=== PATIENT | male | born 1960 | race Caucasian/White ===

== ENCOUNTER 2017-10-27 13:21 | Emergency (ER) | payer BC ==
--- NOTE | 2017-10-27 14:56 | UC ---
Skin Complaint HPI - HPI Summary HPI Summary: patient is a 57-year-old male presenting to the with tick attached to the right groin. He states the tick has been attached for less than 24 hours as he was outside yesterday. Endorses a small amount of pain to the area. There is no erythema around the tick head. Denies history of Lyme. Has had tick bites in the past and has never been on doxycycline. Denies any fevers, sweats, chills, neck pain, headache. - History of Current Complaint Chief Complaint: UCSkin Time Seen by Provider: 10/27/17 13:37 Stated Complaint: TICK BITE Hx Obtained From: Patient Onset/Duration: Sudden Onset Skin Exposure Onset/Duration: Hours Ago Timing: Constant Onset Severity: Mild Current Severity: None Pain Intensity: 0 Pain Scale Used: 0-10 Numeric Character: Redness Aggravating Factor(s): Nothing Alleviating Factor(s): Nothing Associated Signs & Symptoms: Positive: Negative Related History: Possible Reaction to: Insect - Allergy/Home Medications Allergies/Adverse Reactions: Allergies Allergy/AdvReac Type Severity Reaction Status Date / Time No Known Allergies Allergy Verified 10/27/17 13:30 Home Medications: Home Medications NK [No Home Medications Reported] 10/27/17 [History Confirmed 10/27/17] Review of Systems Constitutional: Negative Skin: Other - tick bite with erythema - no EM rash Respiratory: Negative Cardiovascular: Negative Motor: Negative Neurovascular: Negative Musculoskeletal: Negative Psychological: Negative Is Patient Immunocompromised?: No All Other Systems Reviewed And Are Negative: Yes PMH/Surg Hx/FS Hx/Imm Hx Previously Healthy: Yes - Surgical History Surgical History: None - Family History Known Family History: Positive: Unknown - Social History Occupation: Employed Full-time Lives: With Family Alcohol Use: Occasionally Substance Use Type: None Smoking Status (MU): Heavy Every Day Tobacco Smoker Type: Cigarettes Length of Time of Smoking/Using Tobacco: 30 years Physical Exam Triage Information Reviewed: Yes Appearance: Well-Appearing, Well-Nourished Vital Signs: Initial Vital Signs Temp 98.8 F 10/27/17 13:30 Pulse 83 10/27/17 13:30 Resp 20 10/27/17 13:30 BP 134/86 10/27/17 13:30 Pulse Ox 94 10/27/17 13:30 Eye Exam: Normal Eyes: Positive: Conjunctiva Clear Neck exam: Normal Neck: Positive: Supple, No Lymphadenopathy Respiratory Exam: Normal Respiratory: Positive: Chest non-tender, Lungs clear Cardiovascular Exam: Normal Cardiovascular: Positive: RRR Musculoskeletal Exam: Normal Musculoskeletal: Positive: Strength Intact Neurological Exam: Normal Neurological: Positive: Alert Psychological: Positive: Normal Response To Family, Age Appropriate Behavior Skin: Positive: Other - tick bite with erythema - no EM rash Course/Dx - Course Course Of Treatment: Patient arrives with a concern for tick to the right groin. The tick is not engorged. There is no erythema migrans rash. Based on ISDA guidelines, understanding a local rite of infection of ticks with B burgdorferi is 20% if attached for over 48 hours. Attached tick is identified as an adult and scapularis tick or deer tick. However, tick is estimated to up and attached for less than the 48 hours by degree of engorgement in time of exposure. Prophylaxis will not be initiated. Patient is OK with plan and discharge. - Diagnoses Provider Diagnoses: Tick bite Discharge - Sign-Out/Discharge Documenting (check all that apply): Discharge/Admit/Transfer - Discharge Plan Condition: Stable Disposition: HOME Patient Education Materials: Tick Bite (ED) Referrals: Topher Jasso MD [Primary Care Provider] - Additional Instructions: Tick Bite: Approach to prophylaxis : According to the Infectious Diseases Society of [place] (IDSA) guidelines that recommend antibiotic prophylaxis only in patients who meet all of the following criteria: 1. Attached tick identified as an adult or nymphal I. scapularis tick (deer tick). 2. Tick is estimated to have been attached for 48 hours (by degree of engorgement or time of exposure). 3. Prophylaxis is begun within 72 hours of tick removal. Local rate of infection of ticks with B. burgdorferi is 20 percent if attached for over 48 hours (these rates of infection have been shown to occur in parts of [place], parts of the [facility], and parts of [place] and [place]). If you experience a tick and time of attachment is believed to be less than what was hours, you may remove the tick with head intact and no need for prophylaxis. If over 48 hours, please come into UC. Prophylactic doxycycline is not recommended for ticks attached less than 48 hours. - Billing Disposition and Condition Condition: STABLE Disposition: HOME
== END 2017-10-27 13:52 | disposition home or self-care (01) ==
LOC: UCEAST 13:21
DX: S30.861A Insect bite (nonvenomous) of abdominal wall, initial encounter (principal); W57.XXXA Bitten or stung by nonvenomous insect and other nonvenomous arthropods, initial encounter; Y93.9 Activity, unspecified; Y92.9 Unspecified place or not applicable; F17.210 Nicotine dependence, cigarettes, uncomplicated
CPT/HCPCS: 99201; G0463

== ENCOUNTER 2018-09-10 11:19 | Emergency (ER) | payer SELFPAY ==
--- NOTE | 2018-09-10 13:42 | ED ---
Lower Extremity - HPI Summary HPI Summary: Patient is a 57-year-old male smoker presenting to the ED with chief complaint of right hamstring pain radiating down into the right calf. Denies any known injury. Denies recent travel. Patient is a smoker. Patient endorses worsening pain with ambulation, better with rest. He's never had this happen before. No history of blood clots. He states he is otherwise healthy. He states pain started suddenly and has gradually worsened over the past 3 days. - History of Current Complaint Chief Complaint: EDExtremityLower Stated Complaint: RIGHT LEG PAIN PER PT Time Seen by Provider: 09/10/18 11:42 Hx Obtained From: Patient Mechanism Of Injury: Twisted Onset of Pain: Hours Onset/Duration: Days Severity Initially: Moderate Severity Currently: Moderate Pain Intensity: 6 Pain Scale Used: 0-10 Numeric Timing: Constant Location: Is Discrete @ - right hamstring and calf muscle pain Associated Signs And Symptoms: Positive: Negative. Negative: Swelling, Redness , Bruising Aggravating Factor(s): Standing, Ambulation Alleviating Factor(s): Rest Able to Bear Weight: No - Risk Factors Gout Risk Factors: Negative DVT Risk Factors: Smoking Septic Arthritis Risk Factor: Negative - Allergies/Home Medications Allergies/Adverse Reactions: Allergies Allergy/AdvReac Type Severity Reaction Status Date / Time No Known Allergies Allergy Verified 09/10/18 11:36 PMH/Surg Hx/FS Hx/Imm Hx Previously Healthy: Yes Endocrine/Hematology History: Denies: Hx Diabetes, Hx Thyroid Disease Cardiovascular History: Denies: Hx Hypertension Respiratory History: Denies: Hx Asthma, Hx Chronic Obstructive Pulmonary Disease (COPD) GI History: Denies: Hx Ulcer - Immunization History Hx Pertussis Vaccination: No Immunizations Up to Date: Yes Infectious Disease History: No Infectious Disease History: Denies: Hx Hepatitis, Hx Human Immunodeficiency Virus (HIV), Traveled Outside the [place] in Last 30 Days - Family History Known Family History: Positive: Unknown - Social History Occupation: Employed Full-time Lives: With Family Alcohol Use: Occasionally Hx Substance Use: No Substance Use Type: Reports: None Hx Tobacco Use: Yes Smoking Status (MU): Heavy Every Day Tobacco Smoker Type: Cigarettes Length of Time of Smoking/Using Tobacco: 30 years Review of Systems Constitutional: Negative Negative: Fever, Chills, Fatigue, Skin Diaphoresis Negative: Palpitations, Chest Pain Negative: Shortness Of Breath, Cough Genitourinary: Negative Positive: no symptoms reported, see HPI Positive: Myalgia - right hamstring and calf muscle pain Skin: Negative Neurological: Negative All Other Systems Reviewed And Are Negative: Yes Physical Exam Triage Information Reviewed: Yes Vital Signs On Initial Exam: Initial Vitals Temp Pulse Resp BP Pulse Ox 97.6 F 73 18 119/81 93 09/10/18 11:32 09/10/18 11:32 09/10/18 11:32 09/10/18 11:32 09/10/18 11:32 Vital Signs Reviewed: Yes Appearance: Positive: Well-Appearing, Well-Nourished Skin: Positive: Warm, Skin Color Reflects Adequate Perfusion Head/Face: Positive: Normal Head/Face Inspection Eyes: Positive: EOMI, Conjunctiva Clear Neck: Positive: Supple, No Lymphadenopathy Respiratory/Lung Sounds: Positive: Clear to Auscultation, Breath Sounds Present Cardiovascular: Positive: RRR, Pulses are Symmetrical in both Upper and Lower Extremities Musculoskeletal: Positive: Normal, Strength/ROM Intact Neurological: Positive: Speech Normal Psychiatric: Positive: Affect/Mood Appropriate AVPU Assessment: Alert Diagnostics - Vital Signs Vital Signs Temp Pulse Resp BP Pulse Ox 09/10/18 12:58 75 118/88 93 09/10/18 12:57 72 95 09/10/18 11:32 97.6 F 73 18 119/81 93 - Laboratory Lab Statement: Any lab studies that have been ordered have been reviewed, and results considered in the medical decision making process. Lower Extremity Course/Dx - Course Course Of Treatment: During the course of treatment, the patient's evaluated for right hamstring and calf pain, worse with stairs and ambulation, better with rest. He states after a period of time of ambulating, the muscle seems to warmup and feels somewhat better. Symptoms are worse with sitting to standing and beginning movement. DVT ultrasound study obtained which is negative. Patient is able to flex and extend. No evidence of popliteal cysts. No swelling or ecchymosis. Patient denies any pain to the ankle joint. He denies any numbness or tingling to the ipsilateral lower extremity. He will be discharged with muscle tightness and will be given Flexeril twice daily as needed. - Diagnoses Provider Diagnoses: Muscle tightness Discharge - Sign-Out/Discharge Documenting (check all that apply): Patient Departure Patient Received Moderate/Deep Sedation with Procedure: No - Discharge Plan Condition: Stable Disposition: HOME Prescriptions: Cyclobenzaprine TAB* [Flexeril TAB*] 10 mg PO BID PRN #10 tab PRN Reason: Spasms Patient Education Materials: Leg Cramps (ED) Referrals: Aleksandr Sorenson MD [Medical Doctor] - Topher Jasso MD [Primary Care Provider] - Additional Instructions: Please follow up with one of our orthopedic physicians or your physician Moist heat to the area as much as possible Keep good movement in the leg and continue gentle stretches (especially after you use heat) Ibuprofen 600mg three times daily x 4-5 days - Billing Disposition and Condition Condition: STABLE Disposition: Home
[2018-09-10 13:55] VITALS: BP 126/95
== END 2018-09-10 13:52 | disposition home or self-care (01) ==
LOC: ED 11:19
DX: M62.89 Other specified disorders of muscle (principal); M79.651 Pain in right thigh; M79.661 Pain in right lower leg; F17.210 Nicotine dependence, cigarettes, uncomplicated
CPT/HCPCS: 99282

== ENCOUNTER → 2018-11-04 05:40 | Day surgery (SDC) | payer BC ==
--- NOTE | 2018-10-26 08:24 | HP ---
AMENDED REPORT NOW INCLUDES DESIGNATED COSIGNER HISTORY AND PHYSICAL: DATE OF ADMISSION/SURGERY: 11/04/18 DATE OF OFFICE VISIT: 10/25/18 SURGEON: Sabrina Carrington MD.* (DICTATED BY LARA GARCIA) PROCEDURE: Right knee arthroscopy with partial meniscectomy, possible chondroplasty, possible synovectomy, and possible plica excision. CHIEF COMPLAINT: Right knee pain. HISTORY OF PRESENT ILLNESS: Mr. Reyes is a 58-year-old gentleman with continued complaints of right knee pain. He has failed conservative treatment and elected to proceed with a right knee arthroscopy. PAST MEDICAL HISTORY: Denies. PAST SURGICAL HISTORY: ORIF of the left ankle, appendectomy. CURRENT MEDICATIONS: None. ALLERGIES: None. FAMILY HISTORY: Diabetes. SOCIAL HISTORY: He is a 58-year-old gentleman, lives with his , smokes approximately 15 cigarettes a day, drinks 2 beers 4 times a week. Denies use of illicit drugs. REVIEW OF SYSTEMS: A complete 14-point review of systems was reviewed with the patient. It was all negative or noncontributory. He denies a history of DVT, PE, hepatitis, HIV, or anesthesia problems. PHYSICAL EXAMINATION GENERAL: He is well developed, well nourished, in no acute distress. VITAL SIGNS: He stands 5 feet 9 inches tall, weighs 234 pounds. His blood pressure is 138/76, his heart rate is 78. HEENT: Normocephalic, atraumatic. NECK: Supple. No palpable lymph nodes. PULMONARY: The lungs are clear to auscultation bilaterally. CARDIO: Regular rate and rhythm. Strong S1, S2. ABDOMEN: Soft, nontender, nondistended. NEUROLOGICAL: He is alert and oriented x3. MUSCULOSKELETAL: Right lower extremity: The skin is intact. There are no open wounds or abrasions. There is a [id number] effusion of the right knee, some tenderness along the medial joint line. Positive Apley's. Positive Caridad's. Negative Bradley's. Range of motion is 5 to 125 degrees of flexion. He has a 2+ dorsalis pedis pulse. He is able to dorsiflex and plantar flex and has intact sensation. ASSESSMENT AND PLAN: Mr. Reyes is a 58-year-old gentleman with right knee pain secondary to a meniscal tear. He has elected to proceed with a right knee arthroscopy with partial meniscectomy, possible chondroplasty, possible synovectomy, and possible plica excision. The surgery is scheduled for with Dr. Carrington. Dr. Carrington discussed the risks and benefits of the surgery at today's visit and all of his questions were answered. He will follow up with Dr. Carrington in 2 weeks after the surgery. LARA GARCIA [id number]/[facility] #: [id number] MTDVicky
[~2018-11-04 05:40] MED LIST: Buffered Lidocaine 1% SYRIN* 1 ML/SYRINGE INTRADERM ONE; Bupivacaine 0.5%* 50 ML VIAL ONE; Chloroprocaine 2%* 20 ML VIAL ONE; Dexamethasone IV* 4 MG/ML 1 ML (4 MG) IV SLOW PU ONE; Dexamethasone IV* 4 MG/ML 1 ML (4 MG) ONE; DiMENhydriNATE IV* 50 MG/ML VIAL IV PUSH PRN; EPINEPHRINE 1 MG/ML 1 ML VIAL ONE; Famotidine IV* 10 MG/ML 2 ML (20 mg) IV ONE; Famotidine IV* 10 MG/ML 2 ML (20 mg) ONE; Ketorolac INJ* 30 MG/ML 1 ML VIAL ONE; Lactated Ringers 1000 ML Bag* 1,000 ML IV SCH; Midazolam* 1 MG/ML 5 ML VIAL (5 MG) ONE; Naloxone* 0.4 MG/ML 1 ML VIAL IV PRN; Ondansetron INJ* 2 MG/ML VIAL IV PRN; Ondansetron INJ* 2 MG/ML VIAL ONE; Phenylephrine 10 MG/ML VIAL* 1 ML VIAL ONE; Propofol* 10 MG/ML 20 ML BTL ONE; ROPIVACAINE 5 MG/ML 30 ML BTL (0.5%) ONE; ceFAZolin 2 GM PREMIX in ORs 2 GM/50 ML BAG IVPB ONE; fentaNYL* 50 MCG/ML 2 ML VIAL (100 MCG VIAL) IV PRN; fentaNYL* 50 MCG/ML 2 ML VIAL (100 MCG VIAL) ONE; methylPREDNISolone ACETATE 80* 80 MG/ML 1 ML VIAL ONE; oxyCODONE/Acetamin 5/325 MG* TAB PO PRN
[2018-11-04 09:50] VITALS: BP 105/78
--- NOTE | 2018-11-05 00:17 | OP ---
DATE OF OPERATION: 11/04/18 - [facility] DATE OF : 64 ATTENDING SURGEON: Sabrina Carrington MD LOG COOKER: LARA Cardona. Ms. Villavicencio did help throughout the procedure with preparation of the leg, wound retraction, manipulation of the knee, and wound closure. ANESTHESIOLOGIST: Dr. Rocha. ANESTHESIA: Spinal. PRE-OP DIAGNOSIS: Right knee medial meniscal tear, moderate arthritic changes. POST-OP DIAGNOSIS: Right knee medial meniscal tear, anterior synovitis, moderate- to-severe degenerative osteoarthritis. OPERATIVE PROCEDURE: Right knee arthroscopy with partial medial meniscectomy and anterior synovectomy. COMPLICATIONS: None. SPECIMEN: None. ESTIMATED BLOOD LOSS: Less than 25 cc. BRIEF HISTORY/INDICATIONS: Mr. Reyes is a 58-year-old gentleman who developed a sensation of mechanical symptoms along the medial joint line with acute increase in pain over the last 6 months. Conservative treatment failed to relieve his pain. The patient and I obtained an MRI, which did show a medial meniscal tear. The patient noticed that he had baseline arthritic changes as well. Due to failure of conservative treatment and continued pain, the patient wished proceed with right knee arthroscopy and partial meniscectomy. Informed consent was obtained from the patient. He understood the risk of surgery included, but were not limited to bleeding, infection, damage to nearby structures, continued pain, need for further surgery, intraoperative complications, retear of the meniscus, progression of arthritis, stroke, heart attack, blood clot, and . He wished to proceed. INTRAOPERATIVE FINDINGS: Intraoperatively, the patient was noted to have grade 3 and 4 Outerbridge cartilage changes in the medial and patellofemoral compartments. This was severe arthritis with exposed subchondral bone. He had a linear type tear in the posterior third of the medial meniscus in the white- red zone. He had significant anterior synovitis. DESCRIPTION OF PROCEDURE: Mr. Reyes was identified in the preanesthesia unit. His right lower extremity was marked as the correct operative side. Informed consent was signed and placed in the chart. The patient was taken to the operating room and placed under spinal anesthesia. Right lower extremity was prepped and draped in the usual sterile fashion. Preop time-out was made to correctly identify the patient, side, and site. Appropriate perioperative antibiotics were given within 1 hour of incision. A 0.5 cm anterolateral portal incision was made with a 10-blade and carried down to the capsule. Trocar was introduced. As soon as the light and water sources were turned down, there was immediate visualization of the suprapatellar pouch. A tour of the knee joint was performed. Suprapatellar pouch showed no obvious abnormalities. Patellofemoral compartment showed grade 3 and 4 Outerbridge cartilage changes with the exposed subchondral bone along the medial and lateral patellar facets as well as the trochlear group of the femur. Medial gutter showed no plica or loose body. The anterior joint line had extensive synovitis and inflamed tissue. Medial compartment showed exposed subchondral bone along the medial femoral condyle, grade 3 and 4 Outerbridge cartilage changes. There was an anteriorly displaced linear tear of the medial meniscus, posterior third identified. ACL and PCL appeared to be intact. The knee was placed in [id number] position. Lateral meniscus had no obvious tear. There were only minimal degenerative changes in this compartment. The lateral gutter had no obvious abnormality or loose body. Under direct visualization, a medial portal incision was made. Probe was introduced and a second tour of the knee joint was performed. No additional findings were noted. Shaver and radiofrequency ablation were used to perform anterior synovectomy. Inflamed tissue along the anterior joint line was carefully excised. Next a shaver and straight biter were used to perform partial medial meniscectomy. The meniscal tear was carefully excised. A smooth border of the medial meniscus was obtained in the white-red zone along the posterior third of the meniscus. Further probing of the meniscus showed no additional tears or displaced fragments. Radiofrequency ablation wand was used to smooth the edge of the medial meniscus further. The knee was copiously irrigated with sterile saline. All instruments were carefully removed. Incisions were closed with 3-0 nylon suture. Intraarticular injection of 80 mg Depo-Medrol and 6 cc of 0.25% Marcaine was placed in the knee joint. Incisions were covered with Xeroform, 4x4s, and Webril. JOSE ANTONIO wrap and cold packs were placed over this. The patient's anesthesia was reversed without difficulty. He was taken to the PACU in stable condition. Intended weight-bearing will be weightbearing as tolerated. Intended DVT prophylaxis will be aspirin. [id number]/[facility] #: [id number] [facility] CENTERVicky
== END | disposition home or self-care (01) ==
LOC: OR 05:40
PROVIDERS: ATTEND Orthopaedic Surgery Adult Reconstructive Orthopaedic Surgery
DX: S83.241A Other tear of medial meniscus, current injury, right knee, initial encounter (principal); M65.861 Other synovitis and tenosynovitis, right lower leg; M17.11 Unilateral primary osteoarthritis, right knee; Z72.0 Tobacco use; X58.XXXA Exposure to other specified factors, initial encounter; Y92.9 Unspecified place or not applicable; E66.3 Overweight
CPT/HCPCS: J0690; J1040; J1100; J1885; J2250; J2400; J2405; J2704; J2795; J3010; J3490

== ENCOUNTER 2019-08-19 18:15 | Emergency (ER) | payer BC ==
[2019-08-19 18:52] VITALS: BP 123/72
--- OUTSIDE RECORDS SUMMARY | 2019-08-19 19:03 | XMS REPORT | Summary of Care ---
:1960 Author Organization [facility] Address [address] [place] [address] Care Team Providers Name Role Phone Topher Jasso Primary Care Provider Reason for Referral Refer to Department Only (Routine) Status Reason Specialty Diagnoses / Referred By Referred To Procedures Contact Contact Closed Physical Therapy Diagnoses Bilateral chronic knee pain Juan Plata-LARA COE [address] [phone] Reason for Visit Reason Comments Knee Pain bilateral knee pain, difficulty walking, it is very difficult to go up stairs, it's been going on atleast 6 months but it's getting worse not better Encounter Details Date Type Department Care Team Description 08/15/2019 Office Visit [place] [facility] Juan Plata, Bilateral chronic knee Medicine PA pain (Primary Dx) [address] [place] [address] [place] [address] [phone] Allergies No Known Allergiesdocumented as of this encounter (statuses as of 08/15/2019) Medications Medication Sig Dispensed Refills Start Date End Date Status diclofenac (VOLTAREN) Take 1 Tab by 60 Tab 29 09/29/2018 Active 75 MG Oral Tab EC mouth TWO TIMES DAILY NEEDED (knee pain). ibuprofen (MOTRIN) 800 Take 800 mg by 0 Active MG Oral Tab mouth EVERY SIX HOURS NEEDED for Pain. documented as of this encounter (statuses as of 08/15/2019) Active Problems Problem Noted Date Chronic pain of right knee 02/27/2017 Knee effusion, left 01/16/2017 BMI 30.0-30.9,adult 12/30/2012 Overview: sustained wt reduction with portion control and sustained routine exercise. Set realistic goal of 1# wt reduction /week set 10 week goals. Tobacco use disorder 12/30/2012 documented as of this encounter (statuses as of 08/15/2019) Resolved Problems Problem Noted Date Resolved Date Acute pain of left knee 01/16/2017 02/02/2017 documented as of this encounter (statuses as of 08/15/2019) Immunizations Name Administration Dates Next Due Influenza (IM) Preservative Free 06/02/2018, 03/09/2017 documented as of this encounter Social History Tobacco Use Types Packs/Day Years Used Date Current Every Day Smoker 0.5 Smokeless Tobacco: Never Used Alcohol Use Drinks/Week oz/Week Comments Yes occassionally Sex Assigned at Date Recorded Not on file documented as of this encounter Last Filed Vital Signs Vital Sign Reading Time Taken Comments Blood Pressure 127/82 08/15/2019 3:20 PM EST Pulse 69 08/15/2019 3:20 PM EST Temperature 36.4 08/15/2019 3:20 PM EST C (97.5 F) Respiratory Rate - - Oxygen Saturation 94% 08/15/2019 3:20 PM EST Inhaled Oxygen Concentration - - Weight 109.8 kg (242 lb) 08/15/2019 3:20 PM EST Height 177.8 cm (5' 10") 08/15/2019 3:20 PM EST Body Mass Index 34.72 08/15/2019 3:20 PM EST documented in this encounter Patient Instructions Patient InstructionsJuan Plata PA - 08/15/2019 3:20 PM ESTSchedule a follow up appointment with Dr. Armijo. documented in this encounter Progress Notes Jaun Plata PA - 08/15/2019 3:20 PM EST PATIENT: Jeffery Reyes Jr. : 1960 DATE OF SERVICE: 08/15/2019 CHIEF COMPLAINT: Chief Complaint Patient presents with ? Knee Pain bilateral knee pain, difficulty walking, it is very difficult to go up stairs , it's been going on atleast 6 months but it's getting worse not better Subjective HISTORY OF PRESENT ILLNESS: Jeffery Reyes Jr. is a 58-y.o. male. Jeffery presents to the office with a history of chronic knee pain, complaining of knee pain that hasbeen progressively worsening over the last several years. He has a history of knee corticosteroid injections which provided significant relief, and has seen Dr. Armijo orthopedics who advised that he try physical therapy, and if worsens to see him again. He has since been managing his pain with Voltaren and has been feeling well. He states that his pain is keeping him from climbing stairs and having a normal gait. Past Medical History: Diagnosis Date ? Tobacco use Family History Problem Relation Age of Onset ? Diabetes Mother Current Outpatient Medications Medication Sig ? diclofenac (VOLTAREN) 75 MG Oral Tab EC Take 1 Tab by mouth TWO TIMES DAILY NEEDED (knee pain). ? ibuprofen (MOTRIN) 800 MG Oral Tab Take 800 mg by mouth EVERY SIX HOURS NEEDED for Pain. No current facility-administered medications for this visit. No Known Allergies Social History Socioeconomic History ? Marital status: Spouse name: Not on file ? Number of children: Not on file ? Years of education: Not on file ? Highest education level: Not on file Occupational History ? Not on file Social Needs ? Financial resource strain: Not on file ? Food insecurity Worry: Not on file Inability: Not on file ? Transportation needs Medical: Not on file Non-medical: Not on file Tobacco Use ? Smoking status: Current Every Day Smoker Packs/day: 0.50 ? Smokeless tobacco: Never Used Substance and Sexual Activity ? Alcohol use: Yes Comment: occassionally ? Drug use: No ? Sexual activity: Not on file Lifestyle ? Physical activity Days per week: Not on file Minutes per session: Not on file ? Stress: Not on file Relationships ? Social connections Talks on phone: Not on file Gets together: Not on file Attends episcopal service: Not on file Active member of club or organization: Not on file Attends meetings of clubs or organizations: Not on file Relationship status: Not on file ? Intimate partner violence Fear of current or ex partner: Not on file Emotionally abused: Not on file Physically abused: Not on file Forced sexual activity: Not on file Other Topics Concern ? Back Care Not Asked ? Bike Helmet Not Asked ? Blood Transfusions No ? Caffeine Concern Not Asked ? Exercise No Comment: walking ? Hobby Hazards Not Asked ? International Travel Not Asked ? Service Not Asked ? Occupational Exposure Not Asked ? Seat Belt Not Asked ? Self-Exams Not Asked ? Sleep Concern Not Asked ? Special Diet Not Asked ? Stress Concern Not Asked ? Weight Concern Not Asked Social History Narrative No children. 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 Pets: none REVIEW OF SYSTEMS: Review of Systems Constitutional: Negative for chills, fever and malaise/fatigue. Respiratory: Negative for cough, hemoptysis and sputum production. Cardiovascular: Negative for chest pain, palpitations and leg swelling. Musculoskeletal: Positive for joint pain. Negative for back pain, falls, myalgias and neck pain. Neurological: Negative for dizziness, sensory change, weakness and headaches. Objective PHYSICAL EXAM: VITALS: BP 127/82 (BP Location: Left arm, Patient Position: Sitting) | Pulse 69 | Temp 97.5 F(36.4 C) (Tympanic) | Ht 5' 10" (1.778 m) | Wt 242 lb (109.8 kg) | SpO2 94% | BMI 34.72 kg/m Body mass index is 34.72 kg/m . Physical Exam Vitals signs and nursing note reviewed. Neck: Musculoskeletal: No neck rigidity. Musculoskeletal: Comments: Full ROM with passive flexion of the knee. Patient complains of pain at the knee with hyperextension. Negative for laxity bilaterally. Lymphadenopathy: Cervical: No cervical adenopathy. Skin: General: Skin is warm and dry. Neurological: General: No focal deficit present. Mental Status: He is alert. Sensory: No sensory deficit. Coordination: Coordination normal. Deep Tendon Reflexes: Reflexes normal. ASSESSMENT / IMPRESSION: ICD-9-CM ICD-10-CM 1. Bilateral chronic knee pain 719.46 M25.561 REFER TO PHYSICAL THERAPY / REHAB 338.29 M25.562 G89.29 Advised that he follow up with Dr. Armijo as he advised. Continue with the [facility]. Start physical therapy prior to seeing Dr. Armijo. Follow up with us as needed. Author: LARA Hanley 08/15/2019 16:38 documented in this encounter Plan of Treatment Date Type Specialty Care Team Description 08/26/2019 Office Visit Orthopedics Jordy Pratt MD [address] [place] [address] [phone] Name Type Priority Associated Diagnoses Order Schedule REFER TO PHYSICAL Referral Routine Bilateral chronic knee 99 Occurrences starting THERAPY / REHAB pain 08/15/2019 until 08/15/2020 Health Maintenance Due Date Last Done Comments PNEUMOCOCCAL 0-64 YRS (1 of 1968 1 - PPSV23) DTaP/Tdap/Td Vaccines (1 - 1973 Tdap) ZOSTER IMMUNIZATION SERIES 2012 (1 of 2) DEPRESSION SCREENING 11/02/2019 11/01/2018 DIABETES SCREENING 11/02/2019 11/01/2018, 09/29/2018, 08/25/2017, Additional history exists Colonoscopy 10/01/2022 10/01/2017 LIPID DISORDER SCREENING 11/02/2023 11/01/2018, 06/19/2017, 01/26/2017, Additional history exists HEPATITIS A IMMUNIZATION Aged Out No longer eligible SERIES based on patient's age to complete this topic HPV IMMUNIZATION SERIES Aged Out No longer eligible based on patient's age to complete this topic MENINGOCOCCAL VACCINE IMM Aged Out No longer eligible based on patient's age to complete this topic documented as of this encounter Results Not on filedocumented in this encounter Visit Diagnoses Diagnosis Bilateral chronic knee pain Pain in joint, lower leg documented in this encounter Insurance Payer Benefit Plan / Subscriber ID Effective Dates Phone Address Type Group [facility] [id number] 2019-Prese Blue nt Cross/Blue Shield Guarantor Name Account Type Relation to Date of Phone Billing Patient Address Jeffery Reyes Personal/Family 1960 [id number] (Home) [facility] [phone] [place], ([place]) [place] [address] documented as of this encounter
== END 2019-08-19 20:12 | disposition left against medical advice (07) ==
LOC: ED 18:15
DX: S09.90XA Unspecified injury of head, initial encounter (principal); R68.84 Jaw pain; W19.XXXA Unspecified fall, initial encounter; Y92.9 Unspecified place or not applicable; Z53.21 Procedure and treatment not carried out due to patient leaving prior to being seen by health care provider
CPT/HCPCS: 99282